=== PATIENT | male | born 1955 | race Caucasian/White ===

== ENCOUNTER 2017-11-29 12:25 | Outpatient (RCR) | payer OTHER | END 2017-12-13 | LOC: M OT 12:25 | DX: Z51.89 Encounter for other specified aftercare (principal); G56.01 Carpal tunnel syndrome, right upper limb ==

== ENCOUNTER → 2018-07-30 | Outpatient (REF) ==
--- NOTE | 2018-07-31 03:05 | REP ---
Clinical: Pain and disability. Technique: Internal rotation, external rotation, and Y view of the left shoulder. Findings: Subtle cortical irregularity and minimal spurring noted at the acromioclavicular joint. The glenohumeral joint appears relatively intact and normal for age. No periarticular calcifications. Subacromial space is normal. 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 Electronically Signed by Zion Mireles MD 07/31/2018 02:57 A
== END ==
LOC: M SMT 10:38
PROVIDERS: ATTEND Internal Medicine
DX: Z00.00 Encounter for general adult medical examination without abnormal findings (principal)

== ENCOUNTER → 2023-04-25 | Outpatient (CLI) | payer OTHER | LOC: M SLEEP 20:00 | PROVIDERS: ATTEND Internal Medicine Critical Care Medicine | DX: G47.33 Obstructive sleep apnea (adult) (pediatric) (principal) ==

== ENCOUNTER 2025-05-07 12:28 | Outpatient (RCR) | payer MEDICARE, MEDICAID | END 2025-05-15 | LOC: M ST 12:28 | PROVIDERS: ATTEND Student in an Organized Health Care Education/Training Program | DX: R13.10 Dysphagia, unspecified (principal) ==